=== PATIENT | female | born 1935 | race Caucasian/White ===

== ENCOUNTER 2018-04-06 11:07 | Emergency (ER) | payer MEDICARE ==
[2018-04-06 11:23] VITALS: BP 109/63
--- NOTE | 2018-04-06 11:46 | UC ---
Skin Complaint HPI - HPI Summary HPI Summary: Patient is an otherwise healthy 82-year-old female who presents to the with a tick to the left outer upper arm. She first noticed the tick while showering this morning. She states she walked her dog last evening and must have picked up the tick point. The tick is black with a red stripe indicating a recheck. She has never had Lyme disease or tick bite in the past. She did not attempt to dislodge it at home. She is asymptomatic and denies any headaches, fevers, sweats, chills, body aches. - History of Current Complaint Chief Complaint: UCGeneralIllness Time Seen by Provider: 04/06/18 11:22 Stated Complaint: TICK BITE Hx Obtained From: Patient ?: No Onset/Duration: Sudden Onset Skin Exposure Onset/Duration: Hours Ago Timing: Constant Onset Severity: Mild Current Severity: Mild Pain Intensity: 0 Pain Scale Used: 0-10 Numeric Location: Other - left upper arm Aggravating Factor(s): Nothing Alleviating Factor(s): Nothing Associated Signs & Symptoms: Positive: Negative - Allergy/Home Medications Allergies/Adverse Reactions: Allergies Allergy/AdvReac Type Severity Reaction Status Date / Time fentanyl Allergy Intermediate See Comment Verified 04/06/18 11:24 amoxicillin Allergy Rash Verified 01/30/18 14:46 carteolol Allergy Rash Verified 01/30/18 14:46 clindamycin Allergy Rash Verified 01/30/18 14:46 fluticasone Allergy See Comment Verified 01/30/18 14:46 latanoprost [From Xalatan] Allergy Rash Verified 01/30/18 14:46 Penicillins Allergy Rash Verified 01/30/18 14:46 pravastatin Allergy Rash Verified 01/30/18 14:46 simvastatin [From Zocor] Allergy Rash Verified 01/30/18 14:46 timolol Allergy Rash Verified 01/30/18 14:46 midazolam AdvReac Nausea And Verified 01/30/18 14:46 Vomiting Home Medications: Home Medications Betaxolol 0.5 %* [Betoptic 0.5%*] 1 drop BOTH EYES BID 04/06/18 [History Confirmed 04/06/18] Brimonidine Tartrate 1 drop BOTH EARS BID 04/06/18 [History Confirmed 04/06/18] Estradiol VAG CM (NF) [Estrace VAG CM (NF)] 1 applic VAGINAL SEE INSTRUCTIONS [History Confirmed 04/06/18] Review of Systems Constitutional: Negative Skin: Other - tick bite Eyes: Negative ENT: Negative Respiratory: Negative Genitourinary: Negative Neurovascular: Negative Musculoskeletal: Negative Psychological: Negative Is Patient Immunocompromised?: No All Other Systems Reviewed And Are Negative: Yes PMH/Surg Hx/FS Hx/Imm Hx Previously Healthy: Yes - Surgical History Surgical History: Yes Surgery Procedure, Year, and Place: 2011 COLONOSCOPY-. EYE LASER PROCEDURE LEFT EYE- 2011. 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 1957-ovarian cyst removed plus appendectomy. 1953-surgical removal of wisdom teeth. 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 CATARACT -2000 - Family History Known Family History: Positive: None - Social History Occupation: Unemployed Lives: Alone Alcohol Use: Weekly Alcohol Amount: 3-5/week Substance Use Type: None Smoking Status (MU): Never Smoked Tobacco Have You Smoked in the Last Year: No - Immunization History Most Recent Tetanus Shot: UNK Physical Exam Triage Information Reviewed: Yes Appearance: Well-Appearing, Well-Nourished Vital Signs: Initial Vital Signs Pulse 75 04/06/18 11:16 Resp 18 04/06/18 11:16 BP 109/63 04/06/18 11:16 Pulse Ox 99 04/06/18 11:16 Vital Signs Reviewed: Yes Eye Exam: Normal Eyes: Positive: Conjunctiva Clear Neck exam: Normal Neck: Positive: Supple, No Lymphadenopathy Respiratory Exam: Normal Respiratory: Positive: Chest non-tender, Lungs clear Cardiovascular Exam: Normal Cardiovascular: Positive: RRR Musculoskeletal Exam: Normal Musculoskeletal: Positive: Strength Intact Neurological: Positive: Alert Psychological: Positive: Normal Response To Family Skin: Positive: significant lesion(s) - tick attached to upper left lateral arm without EM Course/Dx - Course Course Of Treatment: During the course of treatment, the patient is educated about Lyme disease, prophylactic treatment, and course of treatment with Lyme. She is given information on such. Kelli dish soap applied to the tick and circular motions until the tick detached. Patient tolerated well. She is to follow-up with her PCP for any worsening or changing symptoms. She will return to the if she develops a EM rash. No prophylactic treatment given due to likely less than 24 hours, no engorgement of the tick and patient is asymptomatic. - Diagnoses Provider Diagnoses: Tick bite Discharge - Sign-Out/Discharge Documenting (check all that apply): Discharge/Admit/Transfer - Discharge Plan Condition: Stable Disposition: HOME Patient Education Materials: Lyme Disease (ED), Tick Bite (ED) Referrals: Tammy Perdomo MD [Primary Care Provider] - Additional Instructions: Tick Bite: Approach to prophylaxis : According to the Infectious Diseases Society of [place] (IDSA) guidelines that recommend antibiotic prophylaxis only in patients who meet all of the following criteria: 1. Attached tick identified as an adult or nymphal I. scapularis tick (deer tick). 2. Tick is estimated to have been attached for 48 hours (by degree of engorgement or time of exposure). 3. Prophylaxis is begun within 72 hours of tick removal. Shouldnt I see a doctor right away if I suffer a tick bite? You do not need to see her doctor for every tick bite. Less than half of the local deer tick population case Lyme disease and ticks or inefficient at transmitting it, which makes her chances of being infected pretty well. If the bite site becomes red, painful, or swollen see her doctor to determine if it has become infected with other bacteria. Isnt routine to take preventative antibiotic if Im bitten? Is not recommended that he will take prophylactic antibiotics for tick bite. Taking too many unnecessary antibiotics is not good for you. Instead, I recommend that he watch for development of symptoms of Lyme disease in and seek treatment if he develop. If tick is attached over 48 hours and prophylaxis is begun within 72 hours, prophylaxis will be initiated. Should I get a blood test? Plan early in the course of Lyme infection about is not made enough antibodies for the blood test be positive. Getting tested when you have a fever and a Lyme rash is not helpful in could give you and your doctor a false sense that you dont have Lyme. If you develop a Lyme rash, skip the test and get treated with antibiotics. The test is helpful if someone has meningitis or arthritis from line. Can I be cure if I get Lyme disease? One of the prevailing myths right now is that Lyme disease cant be eradicated if it isnt treated right away. In fact, Lyme disease is completely curable at any stage with antibiotics. Local rate of infection of ticks with B. burgdorferi is 20 percent if attached for over 48 hours (these rates of infection have been shown to occur in parts of [place], parts of the [facility], and parts of [place] and [place]). Is I serious kidney infection If you experience a tick and time of attachment is believed to be less than what was hours, you may remove the tick with head intact and no need for prophylaxis. If over 48 hours, please come into UC. Prophylactic doxycycline is not recommended for ticks attached less than 48 hours. - Billing Disposition and Condition Condition: STABLE Disposition: HOME
== END 2018-04-06 11:39 | disposition home or self-care (01) ==
LOC: UCEAST 11:07
DX: S40.862A Insect bite (nonvenomous) of left upper arm, initial encounter (principal); W57.XXXA Bitten or stung by nonvenomous insect and other nonvenomous arthropods, initial encounter; Y93.9 Activity, unspecified; Y92.9 Unspecified place or not applicable; Z88.5 Allergy status to narcotic agent; Z88.0 Allergy status to penicillin; Z88.8 Allergy status to other drugs, medicaments and biological substances
CPT/HCPCS: 99211; G0463

== ENCOUNTER 2019-08-27 12:27 | Emergency (ER) | payer MEDICARE ==
--- OUTSIDE RECORDS SUMMARY | 2019-08-27 13:39 | XMS REPORT | Continuity of Care Document ---
:1935 External Reference #:[id number] Author Name Amilcar Kaufman M.D. Address [address] [place] [place] [address] Care Team Providers Name Role Phone Cristela Perdomo MD Care Team Information [employer] Tool[employer]ter [phone] Problems Active Problems Provider Date Bilateral primary open angle glaucoma Amilcar Kaufman M.D. Onset: 03/03/2017 Primary open angle glaucoma of left eye Amilcar Kaufman M.D. Onset: 2015 Primary open-angle glaucoma, mild stage Amilcar Kaufman M.D. Onset: 2014 Vitreous degeneration Amilcar Kaufman M.D. Onset: 01/30/2015 Lens Replaced By Other Means Amilcar Kaufman M.D. Onset: 01/30/2015 Open-angle glaucoma Amilcar Kaufman M.D. Onset: 01/30/2015 Social History Type Date Description Comments Sex Unknown ETOH Use Occasionally consumes alcohol Tobacco Use Start: Unknown Patient has never smoked Smoking Status Reviewed: 07/27/19 Patient has never smoked Allergies, Adverse Reactions, Alerts Active Allergies Reaction Severity Comments Date Xalatan 01/30/2015 Timolol 01/30/2015 Pravastatin 01/30/2015 Zocor 01/30/2015 Zocor 01/30/2015 Amoxicillin 01/30/2015 Augmentin 01/30/2015 Clindamycin 01/30/2015 Midazolam 01/30/2015 Fentanyl 01/30/2015 Carteolol 01/30/2015 Fluticasone 01/30/2015 Medications Active Medications SIG Qnty Indications Ordering Provider Date Brimonidine Tartrate one drop twice 5ml William Duarte, OD 01/17/2019 0.2% a day both eyes Solution Betaxolol HCL instill 1 drop 15units Amilcar Kaufman, 06/28/2018 0.5% into each eye M.D. Solution twice daily Hydroxyzine HCL Unknown 10mg Tablets Levothyroxine Sodium Conor WILLETT, Cristela 88mcg Tablets Ellie Allergy Unknown 60mg Tablets Mucinex Allergy Unknown 180mg Tablets Cellcept Unknown 250mg Capsules Immunizations Description No Information Available Vital Signs Date Vital Result Comment 07/27/2019 10:42am Intraocular Pressure Right Eye 14 mmHg Intraocular Pressure Left Eye 16 mmHg 04/18/2019 1:27pm Intraocular Pressure Right Eye 12 mmHg Intraocular Pressure Left Eye 12 mmHg Results Description No Information Available Procedures Date Code Description Status 07/27/2019 53109 Eye Exam Est Intermediate Completed 04/18/2019 88262 Fundus Photography W/Interpretation & Report Completed 04/18/2019 96938 Refraction Completed 04/18/2019 57388 Eye Exam Est Intermediate Completed Medical Devices Description No Information Available Encounters Description No Information Available Assessments Date Code Description Provider 07/27/2019 H40.1111 Primary open-angle glaucoma, right eye, mild Amilcar Kaufman M.D. stage 07/27/2019 H40.1122 Primary open-angle glaucoma, left eye, Amilcar Kaufman M.D. moderate stage 04/18/2019 Z96.1 Presence of intraocular lens Amilcar Kaufman M.D. 04/18/2019 H40.1111 Primary open-angle glaucoma, right eye, mild Amilcar Kaufman M.D. stage 04/18/2019 H40.1122 Primary open-angle glaucoma, left eye, Amilcar Kaufman M.D. moderate stage Plan of Treatment 07/27/2019 - Amilcar Kaufman M.D.H40.1111 Primary open-angle glaucoma, right eye , mild [id number] Primary open-angle glaucoma, left eye, moderate stageFollow up:3 mos oct, iop Functional Status Description No Information Available Mental Status Description No Information Available Referrals Description No Information Available
--- NOTE | 2019-08-27 14:47 | ED ---
Skin Complaint - HPI Summary HPI Summary: Pt. is an 84 y.o female who presents to the ER for possible allergic rxn to a kenolog injection. Pt. notes she had a kenolg injection in right hip 2 days ago. Pt. states she then developed redness to her skin that burned and is itching. Pt denies SOB, CP, mouth or throat swelling. Pt. notes significant hx of allergic rxn and urticaria. She follows with an horticultural worker in [place]. Pt. states she tried calling her horticultural worker today with no return call. Pt. is currently on cellcept, atarax, and lorrie. Unable to take benadryl secondary to glaucoma. Sxs are mild in severity. No current modifying factors. Pt. does not she was taking motrin last week for hip pain which was new for her. She otherwise denies any new exposures. - History of Current Complaint Chief Complaint: EDRashSkinAbscess Time Seen by Provider: 08/27/19 13:49 Stated Complaint: ALLERGIC REACTION Hx Obtained From: Patient Pain Intensity: 0 - Allergy/Home Medications Allergies/Adverse Reactions: Allergies Allergy/AdvReac Type Severity Reaction Status Date / Time fentanyl Allergy Intermediate See Comment Verified 04/06/18 11:24 amoxicillin Allergy Rash Verified 01/30/18 14:46 carteolol Allergy Rash Verified 01/30/18 14:46 clindamycin Allergy Rash Verified 01/30/18 14:46 fluticasone Allergy See Comment Verified 01/30/18 14:46 latanoprost [From Xalatan] Allergy Rash Verified 01/30/18 14:46 Penicillins Allergy Rash Verified 01/30/18 14:46 pravastatin Allergy Rash Verified 01/30/18 14:46 simvastatin [From Zocor] Allergy Rash Verified 01/30/18 14:46 timolol Allergy Rash Verified 01/30/18 14:46 midazolam AdvReac Nausea And Verified 01/30/18 14:46 Vomiting PMH/Surg Hx/FS Hx/Imm Hx Previously Healthy: Yes Endocrine/Hematology History: Reports: Hx Thyroid Disease Denies: Hx Diabetes Cardiovascular History: Reports: Hx Hypercholesterolemia Denies: Hx Hypertension, Hx Pacemaker/ICD, Hx Peripheral Vascular Disease Respiratory History: Reports: Other Respiratory Problems/Disorders - pulmonary nodules History: Denies: Hx Renal Disease Musculoskeletal History: Reports: Hx Back Problems Denies: Hx Arthritis, Hx Rheumatoid Arthritis, Hx Osteoporosis, Hx Scoliosis Sensory History: Reports: Hx Glaucoma Denies: Hx Cataracts, Hx Contacts or Glasses, Hx Hearing Aid Opthamlomology History: Reports: Hx Glaucoma Denies: Hx Cataracts, Hx Contacts or Glasses Neurological History: Denies: Hx Headaches, Hx Seizures, Hx Transient Ischemic Attacks (TIA), Other Neuro Impairments/Disorders Psychiatric History: Denies: Hx Anxiety, Hx Depression, Hx Panic Disorder - Cancer History Cancer Type, 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 EYE LASER PROCEDURE LEFT EYE- 2011. 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 1957-ovarian cyst removed plus appendectomy. 1953-surgical removal of wisdom teeth. 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 CATARACT -2000 Infectious Disease History: No Infectious Disease History: Denies: Traveled Outside the [place] in Last 30 Days - Family History Known Family History: Positive: None, Non-Contributory - Social History Occupation: Retired Lives: With Family Alcohol Use: Weekly Alcohol Amount: 3-5/week Substance Use Type: Reports: None Hx Tobacco Use: No Smoking Status (MU): Never Smoked Tobacco Have You Smoked in the Last Year: No Review of Systems Constitutional: Negative Cardiovascular: Negative Negative: Palpitations, Chest Pain Respiratory: Negative Negative: Shortness Of Breath, Cough Gastrointestinal: Negative Positive: Rash All Other Systems Reviewed And Are Negative: Yes Physical Exam Triage Information Reviewed: Yes Vital Signs On Initial Exam: Initial Vitals Temp Pulse Resp BP Pulse Ox 99.1 F 77 18 135/76 99 08/27/19 12:30 08/27/19 12:30 08/27/19 12:30 08/27/19 12:30 08/27/19 12:30 Vital Signs Reviewed: Yes Appearance: Positive: Well-Appearing - Pt. sitting up in bed in NAD. Talkative. Skin: Positive: Warm, Dry, Other - Light blotchy macular erythema noted to right cheek, chest, inner thighs and right arm. No urticaria. Negative nikolsky sign. No mucosal involvement. Head/Face: Positive: Normal Head/Face Inspection Eyes: Positive: Normal, EOMI, MARCIE ENT: Positive: Pharynx normal, Uvula midline. Negative: Tonsillar swelling, Trismus, Muffled voice, Hoarse voice Neck: Positive: Supple Respiratory/Lung Sounds: Positive: Clear to Auscultation, Breath Sounds Present. Negative: Rales, Rhonchi, Wheezes Cardiovascular: Positive: Normal, RRR Musculoskeletal: Positive: Normal, Strength/ROM Intact Neurological: Positive: Normal, CN Intact II-III Psychiatric: Positive: Affect/Mood Appropriate Procedures - Sedation Patient Received Moderate/Deep Sedation with Procedure: No Diagnostics - Vital Signs Vital Signs Temp Pulse Resp BP Pulse Ox 08/27/19 12:30 99.1 F 77 18 135/76 99 - Laboratory Lab Statement: Any lab studies that have been ordered have been reviewed, and results considered in the medical decision making process. Course/Dx - Course Course Of Treatment: Pt. presenting with possible allergic rxn to kenalog injection. No signs of anaphylaxis. Pt. already takes cellcept and antihistamine. Case discussed with Dr. Dawn who recommends course of prednisone. Advised pt. to call her horticultural worker today for further recommendation and fu. Will return to ER if sxs change or worsen. Pt. understands and agrees with plan. - Differential Diagnoses - Skin Complaint Differential Diagnoses: Contact Dermatitis, Local Allergic Reaction, Medication ; Adverse Reaction, Urticaria - Diagnoses Provider Diagnoses: Rash Discharge ED - Sign-Out/Discharge Documenting (check all that apply): Patient Departure - Discharge Plan Condition: Good Disposition: HOME Prescriptions: methylPREDNISolone [Medrol] 4 mg PO .SEE FRANK INSTRUCTION #1 [email or web address] Patient Education Materials: Acute Rash (ED) Referrals: Tammy Perdomo MD [Primary Care Provider] - Additional Instructions: Call your horticultural worker today for a close follow up appointment Prednisone as directed Continue home medications as directed Return to ER if symptoms change or worsen - Billing Disposition and Condition Condition: GOOD Disposition: Home
[2019-08-27 15:18] VITALS: BP 174/94
== END 2019-08-27 15:10 | disposition home or self-care (01) ==
LOC: ED 12:27
DX: R21 Rash and other nonspecific skin eruption (principal); E07.9 Disorder of thyroid, unspecified; E78.00 Pure hypercholesterolemia, unspecified; Z79.890 Hormone replacement therapy; Z79.899 Other long term (current) drug therapy; Z88.1 Allergy status to other antibiotic agents; Z88.5 Allergy status to narcotic agent; Z88.0 Allergy status to penicillin; Z88.8 Allergy status to other drugs, medicaments and biological substances
CPT/HCPCS: 99282

== ENCOUNTER 2022-11-09 17:01 | Inpatient (IN) ==
[2022-11-09] MEDS ORDERED: Iodixanol (CONTRAST) 320 MG/ML 100 ML SDV IV ONE (17:11)
[2022-11-09 17:38] LABS: ABS Eosinophils 0.1 10^3/ul (0-0.6); ABS Lymphocytes 1.3 10^3/ul (1.0-4.8); ABS Neutrophils 6.6 10^3/ul (1.5-7.7); Eosinophil % 1.3 %; Hematocrit 45 % (35-47); Hemoglobin 14.9 g/dL (12.0-16.0); Lymphocyte % 14.3 %; Mean Corpuscular HGB Conc 33 g/dL (31-36); Mean Corpuscular Hemoglobin 31 pg (27-31); Mean Corpuscular Volume 93 fL (80-97); Mean Platelet Volume 7.6 fL (7.4-10.4); Platelet Count 289 10^3/uL (150-450); Red Cell Distribution Width 14 % (10-15)
[2022-11-09 17:49] LABS: INR 0.95 (0.88-1.18)
[2022-11-09 18:20] LABS: Albumin 4.4 g/dL (3.2-5.2); Albumin/Globulin Ratio 1.5 (1-3); Calcium 9.4 mg/dL (8.6-10.3); Globulin 2.9 g/dL (2-4); HDL Cholesterol 88.1 mg/dL; Potassium 4.4 mmol/L (3.5-5.0); Total Bilirubin 0.6 mg/dL (0.2-1.0); Total Protein 7.3 g/dL (6.4-8.9)
[2022-11-10] MEDS ORDERED: Enoxaparin 40 MG/0.4 ML SYR SUBCUT SCH (06:00)
[2022-11-10 06:14] LABS: ABS Eosinophils 0.1 10^3/ul (0-0.6); ABS Lymphocytes 1.1 10^3/ul (1.0-4.8); ABS Monocytes 0.7 10^3/ul (0-0.8); ABS Neutrophils 4.5 10^3/ul (1.5-7.7); Eosinophil % 1.8 %; Hematocrit 41 % (35-47); Hemoglobin 13.8 g/dL (12.0-16.0); Lymphocyte % 16.8 %; Mean Corpuscular HGB Conc 34 g/dL (31-36); Mean Corpuscular Hemoglobin 31 pg (27-31); Mean Corpuscular Volume 92 fL (80-97); Mean Platelet Volume 7.5 fL (7.4-10.4); Platelet Count 252 10^3/uL (150-450); Red Blood Count 4.43 10^6 /uL (3.70-4.87); Red Cell Distribution Width 14 % (10-15); White Blood Count 6.4 10^3/uL (3.5-10.8)
[2022-11-10 07:19] LABS: Calcium 8.8 mg/dL (8.6-10.3); Potassium 4.4 mmol/L (3.5-5.0); eGFR CKD-EPI 65.3 (>60)
[2022-11-10] MEDS ORDERED: Timolol 0.5% OPTH.SOL BTL BOTH EYES SCH (09:00)
[2022-11-10] MEDS ORDERED: Sulfur Hexaflouride MICROSPHR 25 MG VIAL ONE (09:47)
[2022-11-10 17:31] VITALS: BP 143/64
== END 2022-11-10 18:30 | disposition home or self-care (01) | DRG 69 ==
LOC: ED 17:01 → EDHOLD 20:44 → SUATTDRO 20:44 → MEDTELE 11-10 02:30
PROVIDERS: ADMIT Internal Medicine; ATTEND Internal Medicine

== ENCOUNTER 2023-07-11 07:30 | Inpatient (IN) ==
[~2023-07-11 07:30] MED LIST: Buffered Lidocaine 1% SYRIN 1 ml INTRADERM ONE; Dexamethasone IV 4 MG/ML VIAL 1 ml VIAL ONE; Lactated Ringers 1000 ml BAG 1,000 ML IV SCH; Lidocaine 2% PF 5 ML VIAL ONE; Naloxone 0.4 mg VIAL 0.4 mg/ml 1 ml VIAL IV PRN; Ondansetron 4 mg VIAL 2 MG/ML 2 ml VIAL IV PRN; Ondansetron 4 mg VIAL 2 MG/ML 2 ml VIAL ONE; Propofol 10 MG/ML 20 ML BTL ONE; Rocuronium 50 mg VIAL 10 mg/ml 5 ml VIAL (50 mg) ONE; fentaNYL 100 mcg/2 ml 50 MCG/ML VIAL IV PRN; fentaNYL 250 mcg/5 ml 50 MCG/ML 5 ml VIAL (250 MCG) ONE
[2023-07-11] MEDS ORDERED: Ertapenem 1 GM in NS 0.9% 50 ML IVPB ONE (08:00)
[2023-07-11] MEDS ORDERED: Heparin 5000 UNITS/ML 1 mL VIAL ONE (08:44)
[2023-07-11 08:56] LABS: Rapid COVID-19 Molecular Undetected (Undetected)
[2023-07-11] MEDS ORDERED: Midazolam 2 mg/2 ml VIAL 1 mg/ml 2 ml VIAL (2 mg) ONE (08:57)
[2023-07-11] MEDS ORDERED: Lidocaine 1% VIAL 10 MG/ML 30 ML VIAL ONE (09:41)
[2023-07-11] MEDS ORDERED: Bupivacaine 0.25% EPI 200,000 30 ML SDV ONE (09:42)
[2023-07-11] MEDS ORDERED: Phenylephrine IV 10 MG/ML 1 ml VIAL ONE (11:02)
[2023-07-11] MEDS ORDERED: Ondansetron 4 mg VIAL 2 MG/ML 2 ml VIAL ONE (11:13)
[2023-07-11] MEDS ORDERED: Dexamethasone IV 4 MG/ML VIAL 1 ml VIAL ONE (11:13)
[2023-07-11] MEDS ORDERED: HYDROmorphone 0.5 MG/0.5 ML SYRINGE ONE (11:33)
[2023-07-11] MEDS ORDERED: Propofol 10 MG/ML 20 ML BTL ONE ×2 (12:22→13:30)
[2023-07-11] MEDS: Acetaminophen IV 1 GM/100ML 1,000 MG/100 ML BAG IV SCH ×2 (13:25→22:58)
[2023-07-11] MEDS: Ondansetron 4 mg VIAL 2 MG/ML 2 ml VIAL IV PRN (21:15)
[2023-07-11] MEDS: Latanoprost 0.005% 2.5 ml BTL BOTH EYES SCH (22:12)
[2023-07-11] MEDS: Timolol 0.5% OPTH.SOL BTL BOTH EYES SCH (22:48)
[2023-07-12] MEDS: Acetaminophen IV 1 GM/100ML 1,000 MG/100 ML BAG IV SCH ×3 (06:05→20:57)
[2023-07-12 06:44] LABS: ABS Lymphocytes 0.6 10^3/uL (1.0-4.8); ABS Monocytes 1.2 10^3/uL (0.0-0.9); ABS Neutrophils 10.3 10^3/uL (1.5-7.6); Hemoglobin 12.3 g/dL (11.5-14.3); Mean Corpuscular Hemoglobin 32.1 pg (27-33); Mean Corpuscular Hgb Conc 34.2 g/dL (31-36); Mean Corpuscular Volume 93.8 fL (80-97); Mean Platelet Volume 7.4 fL (7.5-11.2); Platelet Count 237 10^3/uL (150-450); Red Blood Count 3.84 10^6/uL (3.63-4.92); White Blood Count 12.2 10^3/uL (3.8-11.8)
[2023-07-12 07:06] LABS: Calcium 8.3 mg/dL (8.6-10.3); Creatinine, Serum 0.75 mg/dL (0.51-0.95); Potassium 3.7 mmol/L (3.5-5.0); eGFR CKD-EPI 76.5 (>60)
[2023-07-12] MEDS ORDERED: Enoxaparin 40 MG/0.4 ML SYR SUBCUT SCH (08:00)
[2023-07-12] MEDS: Timolol 0.5% OPTH.SOL BTL BOTH EYES SCH ×2 (09:12→20:58)
[2023-07-12] MEDS ORDERED: Calcium Carb (TUMS) 500 mg CHEW TAB PO PRN (16:27)
[2023-07-12] MEDS: Latanoprost 0.005% 2.5 ml BTL BOTH EYES SCH (20:17)
[2023-07-12] MEDS: HYDROmorphone 0.5 MG/0.5 ML SYRINGE IV SLOW PU PRN (22:53)
[2023-07-12] MEDS: Ondansetron 4 mg VIAL 2 MG/ML 2 ml VIAL IV PRN (23:09)
[2023-07-13] MEDS: Acetaminophen IV 1 GM/100ML 1,000 MG/100 ML BAG IV SCH ×4 (05:33→22:00)
[2023-07-13] MEDS: HYDROmorphone 0.5 MG/0.5 ML SYRINGE IV SLOW PU PRN ×2 (06:04→22:28)
[2023-07-13 06:16] LABS: Hematocrit 32.2 % (35-45); Hemoglobin 11.3 g/dL (11.5-14.3); Mean Corpuscular Hemoglobin 32.8 pg (27-33); Mean Corpuscular Hgb Conc 35.1 g/dL (31-36); Mean Corpuscular Volume 93.5 fL (80-97); Mean Platelet Volume 7.6 fL (7.5-11.2); Platelet Count 229 10^3/uL (150-450); Red Blood Count 3.45 10^6/uL (3.63-4.92); Red Cell Distribution Width 14.2 % (12-17)
[2023-07-13 06:37] LABS: Calcium 8.7 mg/dL (8.6-10.3); Creatinine, Serum 0.72 mg/dL (0.51-0.95); Potassium 4.5 mmol/L (3.5-5.0); eGFR CKD-EPI 80.4 (>60)
[2023-07-13] MEDS: Timolol 0.5% OPTH.SOL BTL BOTH EYES SCH ×2 (08:31→22:17)
[2023-07-13] MEDS: Ure-Na 15 GM POWD.PACK PO SCH ×2 (10:43→22:12)
[2023-07-13] MEDS: Latanoprost 0.005% 2.5 ml BTL BOTH EYES SCH (22:00)
[2023-07-14] MEDS: Acetaminophen IV 1 GM/100ML 1,000 MG/100 ML BAG IV SCH ×3 (05:13→21:17)
[2023-07-14 06:50] LABS: Calcium 8.3 mg/dL (8.6-10.3)
[2023-07-14 06:56] LABS: Creatinine, Serum 1.1 mg/dL (0.51-0.95); eGFR CKD-EPI 48.3 (>60)
[2023-07-14 07:14] LABS: ABS Eosinophils 0.3 10^3/uL (0.0-0.5); ABS Monocytes 0.6 10^3/uL (0.0-0.9); ABS Neutrophils 5.1 10^3/uL (1.5-7.6); ABS Nucleated RBC 0.01 10^3/ul; Eosinophil % 4.5 %; Hematocrit 27.8 % (35-45); Hemoglobin 9.6 g/dL (11.5-14.3); Lymphocyte % 13.7 %; Mean Corpuscular Hemoglobin 32.7 pg (27-33); Mean Corpuscular Hgb Conc 34.5 g/dL (31-36); Mean Corpuscular Volume 94.9 fL (80-97); Mean Platelet Volume 7.8 fL (7.5-11.2); Nucleated Red Blood Cells % 0.1 /100 WBC (0.0-0.4); Platelet Count 204 10^3/uL (150-450); Red Blood Count 2.93 10^6/uL (3.63-4.92); Red Cell Distribution Width 14.6 % (12-17)
[2023-07-14] MEDS: Timolol 0.5% OPTH.SOL BTL BOTH EYES SCH ×2 (08:53→21:21)
[2023-07-14] MEDS: Ure-Na 15 GM POWD.PACK PO SCH ×2 (09:06→21:12)
[2023-07-14] MEDS: NS 0.9% 1000 ml BAG 1,000 ML IV SCH (09:12)
[2023-07-14] MEDS: Latanoprost 0.005% 2.5 ml BTL BOTH EYES SCH (21:08)
[2023-07-14] MEDS: HYDROmorphone 0.5 MG/0.5 ML SYRINGE IV SLOW PU PRN (21:12)
[2023-07-15] MEDS: NS 0.9% 1000 ml BAG 1,000 ML IV SCH (05:05)
[2023-07-15] MEDS: Acetaminophen IV 1 GM/100ML 1,000 MG/100 ML BAG IV SCH (05:07)
[2023-07-15 07:03] LABS: Potassium 4.6 mmol/L (3.5-5.0)
[2023-07-15 07:08] LABS: Creatinine, Serum 0.51 mg/dL (0.51-0.95); eGFR CKD-EPI 89.7 (>60)
[2023-07-15 07:11] LABS: ABS Eosinophils 0.4 10^3/uL (0.0-0.5); ABS Lymphocytes 0.9 10^3/uL (1.0-4.8); ABS Monocytes 0.5 10^3/uL (0.0-0.9); ABS Neutrophils 3.9 10^3/uL (1.5-7.6); ABS Nucleated RBC 0.01 10^3/ul; Eosinophil % 7.6 %; Hematocrit 26.4 % (35-45); Lymphocyte % 15.5 %; Mean Corpuscular Hemoglobin 32.1 pg (27-33); Mean Corpuscular Hgb Conc 33.9 g/dL (31-36); Mean Corpuscular Volume 94.6 fL (80-97); Mean Platelet Volume 7.4 fL (7.5-11.2); Nucleated Red Blood Cells % 0.1 /100 WBC (0.0-0.4); Platelet Count 212 10^3/uL (150-450); Red Blood Count 2.79 10^6/uL (3.63-4.92); Red Cell Distribution Width 14.2 % (12-17); White Blood Count 5.8 10^3/uL (3.8-11.8)
[2023-07-15] MEDS: Timolol 0.5% OPTH.SOL BTL BOTH EYES SCH ×2 (09:00→20:55)
[2023-07-15] MEDS: Ure-Na 15 GM POWD.PACK PO SCH ×2 (09:00→20:36)
[2023-07-15] MEDS: Latanoprost 0.005% 2.5 ml BTL BOTH EYES SCH (20:41)
[2023-07-16 06:32] VITALS: BP 129/73
[2023-07-16 07:44] LABS: ABS Eosinophils 0.3 10^3/uL (0.0-0.5); ABS Lymphocytes 0.8 10^3/uL (1.0-4.8); ABS Monocytes 0.5 10^3/uL (0.0-0.9); ABS Neutrophils 4.3 10^3/uL (1.5-7.6); Eosinophil % 5.5 %; Hematocrit 27.8 % (35-45); Hemoglobin 9.7 g/dL (11.5-14.3); Lymphocyte % 13.4 %; Mean Corpuscular Hemoglobin 32.9 pg (27-33); Mean Corpuscular Volume 93.9 fL (80-97); Mean Platelet Volume 7.1 fL (7.5-11.2); Nucleated Red Blood Cells % 0.1 /100 WBC (0.0-0.4); Platelet Count 274 10^3/uL (150-450); Red Blood Count 2.96 10^6/uL (3.63-4.92); Red Cell Distribution Width 14.4 % (12-17)
[2023-07-16 08:04] LABS: Calcium 8.6 mg/dL (8.6-10.3); Creatinine, Serum 0.53 mg/dL (0.51-0.95); Potassium 4.3 mmol/L (3.5-5.0); eGFR CKD-EPI 88.9 (>60)
[2023-07-16] MEDS: Ure-Na 15 GM POWD.PACK PO SCH (08:57)
[2023-07-16] MEDS: Timolol 0.5% OPTH.SOL BTL BOTH EYES SCH (08:57)
== END 2023-07-16 11:20 | disposition home or self-care (01) | DRG 330 ==
LOC: OR 07:30 → SSU 16:18
PROVIDERS: ADMIT Surgery; ATTEND Surgery